=== PATIENT | male | born 1960 | race Caucasian/White ===

== ENCOUNTER 2017-05-07 09:22 | Inpatient (IN) | payer OTHER ==
[~2017-05-07] VITALS: Ht 170.2 cm; Wt 79.4 kg
[~2017-05-07 09:22] MED LIST: Aspirin PO; Atorvastatin PO; CLOP75TA3 PO; Citalopram Hydrobromide PO; Hydrocodone/Acetaminophen PO; LEVO500T16 PO; LISI-609 PO; METR500T PO; Metoprolol Tartrate PO; NITR0.4T SL
[2017-05-07 09:26] VITALS: BP 138/84; PULSE 53; RESP 10; O2SAT 97
[2017-05-07] MEDS ORDERED: 0.9% Sodium Chloride 1,000 ML IV ONE (09:40)
--- NOTE | 2017-05-07 09:40 | ED.REPORT ---
HPI-General Illness Date of Service May 07, 2017 ED Provider: Reno Alvarado MD Patient is a 56 year old male with a history of hypertension, [place], CAD and colitis who presents to the ED complaining of blood in stool onset a day ago. Associated symptoms that started 2 days ago include abdominal pain, diarrhea, diaphoresis and nausea. He denies current chest pain or shortness of breath. Patient reports having 3 bright red bloody bowel movements today. He states that he took Hydrocodone this morning with slight relief. Decided to come in today as he was worried about the volume of blood and has had this once before. Nursing Notes Stated Complaint: BLEEDING Chief Complaint: Male Abdominal Pain Nursing Notes Reviewed: Yes Allergies: Coded Allergies: No Known Allergies (Verified , 05/07/17) Scheduled Aspirin (Aspirin) 81 Mg Tablet 81 MG PO DAILY Atorvastatin (Lipitor) 40 Mg Tablet 40 MG PO HS Citalopram (Citalopram) 10 Mg Tablet 15 MG PO DAILY Clopidogrel Bisulfate (Plavix) 75 Mg Tablet 75 MG PO DAILY Lisinopril (Lisinopril) 10 Mg Tablet 10 MG PO HS Metoprolol Tartrate (Metoprolol Tartrate) 25 Mg Tablet 12.5 MG PO BID Scheduled PRN Hydrocodone-Acetaminophen 10-325 mg (Hydrocodone-Acetaminophen 10-325 mg) 1 Each Tablet 1 TABLET PO Q4-6H PRN PRN For Pain Nitroglycerin SL (Nitrostat) 0.4 Mg Tablet 0.4 MG SL Q5MIN PRN PRN For Chest Pain General Time Seen by : 09:39 Chief Complaint Blood in stool Hx Obtained From: Patient Arrived By: Walk-in Sudden in Onset?: Yes Onset Occurred: 1 day ago Symptom Duration: Since onset Location: : Abdomen Quality: Painful Radiation: : Does not radiate Severity: Current: Moderate Associated with: Reports: Abdominal pain Recent Healthcare: No recent hospitalization, Recent doctor visit Similar Sx Previous: No Past Medical History Past Medical History Notes: Had colonoscopy with biopsies 05/24/2014 and was found benign. Past Medical History [place] Reports: Coronary artery disease, Hyperlipidemia, Hypertension Reports: Depression Past Surgical History shoulder surgery (October 2014) Bilateral knee surgeries Hernia repair Splenectomy Abdominal surgery secondary to trauma Reports: Angioplasty Reports: Back/neck surgery Family History younger brother at a young age Smoking History Former Smoker Social History Alcohol Use: In recovery Drug Use: Denies drug use Other Social History: Smokeless tobacco Ambulatory Status Independent Review of Systems Full Review of Systems Constitutional: Denies: Chills, Fever Respiratory: Denies: Non-productive cough, Shortness of breath Cardiovascular: Denies: Chest pain GI: Reports: Abdominal pain, Diarrhea, Hematochezia, Nausea Skin: Reports Diaphoresis Complete sys rev & neg: except as marked. Physical Exam Constitutional: Well-developed, well-nourished. Not diaphoretic. Head: Normocephalic and atraumatic. Eyes: EOM are normal. Pupils are equal, round, and reactive to light. Neck: Supple, no tracheal deviation. Cardiovascular: Normal rate, regular rhythm. Equal and intact distal pulses throughout. Pulmonary/Chest: Effort normal and breath sounds normal. No respiratory distress. Abdominal: Soft. No distension. There is no rebound, or guarding. Bowel sounds present. Diffuse left sided tenderness with palpation. Musculoskeletal: Range of motion grossly intact, moving all extremities. No edema or tenderness appreciated. Neurological: AOx3. Grossly nonfocal exam. Strength and sensation intact and equal to bilateral upper and lower extremities. Skin: Warm and dry, no rashes or pallor appreciated. Psychiatric: Appropriate mood and affect. Behavior appears normal. Rectal: Hemoccult positive. Small amount of gross blood. Did not appreciate mass or external hemorrhoids Vital Signs Vital Signs Date Time Temp Pulse Resp B/P Pulse Ox O2 Delivery O2 Flow Rate FiO2 05/07/17 15:05 36.8 51 18 129/59 97 Room Air 05/07/17 12:12 36.6 52 16 141/72 97 Room Air 05/07/17 09:26 36.5 53 10 138/84 97 Room Air Initial VS: Reviewed Interpretation & Diagnostics Lab Results Interpretation Result Diagram: 05/07/17 1036 05/07/17 1036 Test 05/07/17 10:36 05/07/17 10:51 White Blood Count 12.1th/mm3 (3.8-10.1) Red Blood Count 4.35mil/mm3 (4.40-5.80) Hemoglobin 13.6g/dL (13.8-17.2) Hematocrit 40.0% (41.0-50.0) Mean Corpuscular Volume 92.0fL (81-100) Mean Corpuscular Hemoglobin 31.3pg (27.0-35.0) Mean Corpuscular Hemoglobin Concent 34.0% (32.0-37.0) Red Cell Distribution Width 13.1% (12.3-15.4) Platelet Count 322bil/L (150-400) Neutrophils (%) (Auto) 67.2% (40-74) Lymphocytes (%) (Auto) 23.7% (14-46) Monocytes (%) (Auto) 7.4% (4-12) Eosinophils (%) (Auto) 1.2% (0-5) Basophils (%) (Auto) 0.3% (0-3) Prothrombin Time 10.0sec (8.1-12.5) Prothromb Time International Ratio 0.94ratio Sodium Level 140mEq/L (134-144) Potassium Level 4.8mEq/L (3.5-5.2) Chloride Level 104mEq/L (97-108) Carbon Dioxide Level 24mmol/L (18-29) Blood Urea Nitrogen 14mg/dL (6-24) Creatinine 0.76mg/dL (0.76-1.27) Estimat Glomerular Filtration Rate 112mL/min (>59) Glucose Level 92mg/dL (60-99) Calcium Level 9.6mg/dL (8.5-10.1) Magnesium Level 1.9mg/dL (1.6-2.6) Total Bilirubin 0.4mg/dL (0.0-1.2) Aspartate Amino Transf (AST/SGOT) 23U/L (0-50) Alanine Aminotransferase (ALT/SGPT) 26U/L (0-44) Alkaline Phosphatase 114U/L (25-150) Troponin T < 0.010ug/L (0.0-0.011) Total Protein 7.2g/dL (6.4-8.4) Albumin 4.1g/dL (3.4-5.0) Urine Color Straw (YELLOW) Urine Appearance Clear (CLEAR,HAZY) Urine pH 6.0 (5.0-8.0) Urine Specific [place] 1.005 (1.003-1.035) Urine Protein Negativemg/dL (NEG,TRACE) Urine Glucose (UA) Negativemg/dL (NEGATIVE) Urine Ketones Negativemg/dL (NEGATIVE) Urine Occult Blood Trace (NEGATIVE) Urine Nitrite Negative (NEGATIVE) Urine Bilirubin Negative (NEGATIVE) Urine Urobilinogen Normalmg/dL (NORMAL) Urine Leukocyte Esterase Negative (NEGATIVE) Urine RBC 0-2/hpf (0-2) Urine WBC 0-5/hpf (0-5) Urine Epithelial Cells None/hpf (NONE-MOD) Urine Crystals None seen (NONE SEEN) Urine Bacteria None/hpf (NONE-FEW) Urine Hyaline Casts None/lpf (NONE) Urine Granular Casts None seen (NONE SEEN) Urine Waxy Casts None seen (NONE SEEN) Urine Red Blood Cell Casts None seen (NONE SEEN) Urine White Blood Cell Casts None seen (NONE SEEN) Urine Mucus None seen (None Seen) Urine Trichomonas None seen (NONE SEEN) Urine Yeast None (NONE SEEN) Urinalysis Comment None Urine Culture Reflexed Not indicated ECG Interpretation ECG Interpretation: paired ventricular premature complexes inferior infarct, old Time: 09:51 Interpreted by: ED physician Normal ECG Interpretation: Normal rate (52), Normal sinus rhythm X-Ray Chest Interpretation Chest Xray Interpretation: IMPRESSION: No acute cardiopulmonary pathology. Dictated by: Irvin Cedeno M.D. on 05/07/2017 at 10:07 Approved by: Irvin Cedeno M.D. on 05/07/2017 at 10:09 View: Portable, 1 view Interpretation / Wet Read by: Interpret - Radiologist CT Abd / Pelvis Interpretation IMPRESSION: 1. Segmental wall thickening of the descending colon with pericolonic fat stranding compatible with a mild colitis, likely infectious or inflammatory in etiology. 2. Mild wall thickening of the visualized distal esophagus may represent a mild esophagitis. Dictated by: Andrea Ayala M.D. on 05/07/2017 at 13:07 Approved by: Andrea Ayala M.D. on 05/07/2017 at 13:16 Interpretation / Wet Read by: Interpret - Radiologist Re-Eval/Medical Decision Med Decision/Clinical Course 56M w/ hx of CAD p/w several days of diarrhea and abdominal pain, now w/ BRBPR on multiple occasions today. HDS here. Does have some diffuse L sided TTP, though patient somewhat surprised w/ level of tenderness - though does have hx of CAD, doesn't seem entirely c/w mesenteric ischemia in terms of clinical presentation or exam. Hgb 13.6. No chest pain, pressure, or SOB. No external hemorrhoids appreciated. CT w/ colitis, unclear if infectious or inflammatory. No prodromal symptoms. Discussed w/ Dr. Alvarez - appreciate involvement; he will have the patient admitted and perform endoscopy. Admitted for further management and evaluation. All questions answered. Patient agreeable to plan, no further questions. Time of Eval: 13:59 Re-Evaluation/Progress Note: Discussed results and plan for admit. Patient understands and agrees to plan. All questions were addressed. Consultation #1: Referral / Consult Name: Prosper Alvarez MD Consulted With: On-call physician (GI) Call Returned at: 13:48 Geriatric Nurse Assistant: Will see patient, Agrees with eval, Agrees with plan Note: Consult with ARMANDO Christianson, who recommends the patient be admitted. Consultation #2: Referral / Consult Name: Raquel Gage MD Consulted With: Hospitalist Call Returned at: 15:36 Geriatric Nurse Assistant: Agrees with eval, Agrees with plan, Accepts admit Counseled Regarding: Diagnosis, Lab results, Need for admission Discharge & Departure Primary Impression: Acute GI bleeding Disposition: ADMITTED TO HOSPITAL Discharge Condition All VS Reviewed: Yes Condition: Stable Referrals: Irving Garza MD (PCP) Traceibgiovani Attestation Portions of this note were transcribed by Germaine Grider. I, Dr. Alvarado personally performed the history, physical exam and medical decision-making; I reviewed and confirmed the accuracy of the information in the transcribed note. Signed by: Jonah Spaulding, 05/07/17 and 1345 copies to: Irving Garza MD, William B MD May 07, 2017 09:39 Vaishali Grider May 07, 2017 09:52
[2017-05-07] MEDS ORDERED: Iohexol 300 mg/mL 30 mL Inj PO ONE (10:10)
[2017-05-07] MEDS ORDERED: HYDROmorphone 0.5 mg/0.5 mL iSecure Syringe IVPUSH PRN (10:10)
--- NOTE | 2017-05-07 10:17 | DRSVH ---
PROCEDURE: X-RAY CHEST ONE VIEW, PORTABLE ([id number]) INDICATIONS: GI bleed; eval for abnl TECHNIQUE: One view of the chest was acquired. COMPARISON: [facility], , CHEST 1VW (PORTABLE), 01/16/2015, 10:04. FINDINGS: Surgical changes and devices: Upper quadrant surgical clips. Lungs and pleura: No pleural effusions or pneumothorax. Lungs are clear. Mediastinum: Mediastinal contours appear normal. Heart size is normal. Bones and chest wall: No suspicious bony lesions. Overlying soft tissues appear unremarkable. IMPRESSION: No acute cardiopulmonary pathology. Dictated by: Irvin Cedeno M.D. on 05/07/2017 at 10:07 Approved by: Irvin Cedeno M.D. on 05/07/2017 at 10:09
[2017-05-07 10:50] LABS: BASOPHILS % (AUTO) 0.3 % (0-3); EOSINOPHILS % (AUTO) 1.2 % (0-5); MONOCYTES % (AUTO) 7.4 % (4-12); Mean Corpuscular Hemoglobin 31.3 pg (27.0-35.0); NEUTROPHILS % (AUTO) 67.2 % (40-74); Platelet Count 322 bil/L (150-400)
[2017-05-07 11:06] LABS: INR 0.94 ratio
[2017-05-07 11:07] LABS: APPEARANCE,URINE CLEAR (CLEAR,HAZY); COLOR,URINE STRAW (YELLOW); OCCULT BLOOD,URINE TRACE (NEGATIVE); UROBILINOGEN,URINE NORMAL (NORMAL)
[2017-05-07 11:38] LABS: Magnesium 1.9 mg/dL (1.6-2.6); TROPONIN T < 0.010 ug/L (0.0-0.011)
[2017-05-07 12:12] VITALS: BP 141/72; PULSE 52; RESP 16; O2SAT 97
[2017-05-07] MEDS ORDERED: Propofol 10,000 mCg/mL 20 mL Inj ONE (13:03)
--- NOTE | 2017-05-07 13:17 | DRSVH ---
PROCEDURE: CT ABDOMEN AND PELVIS WITH CONTRAST ([id number]) INDICATIONS: Abdominal pain and bright red blood per rectum. TECHNIQUE: After the administration of oral and intravenous contrast, 5 mm thick sections acquired from the diap hragms to the symphysis. 5 mm thick coronal and sagittal reformats were performed. For radiation do se reduction, the following was used: automated exposure control, adjustment of mA and/or kV accordi ng to patient size. COMPARISON: [facility], CT, CT ABD PELVIS W CON, 06/09/2015, 2:58. FINDINGS: Image quality: Excellent. ABDOMEN: Lung bases: There is mild dependent atelectasis. Heart size is normal. There is mild concentric wal l thickening of the visualized distal esophagus. Solid organs: There is a small hypodense focus in the posterior right hepatic lobe redemonstrated re presenting a cyst. The spleen is surgically absent, with multiple surgical clips in the left upper q uadrant. There are a few splenules noted. Gallbladder appears within normal limits without calcifie d gallstones. Biliary system is non-dilated. Pancreas enhances normally. No adrenal nodules. Kidn eys demonstrate no hydronephrosis. There is cortical thinning posteriorly in the left kidney consist ent with sequela of prior trauma, infection, or infarct. A small calcification in the left kidney me asuring up to 3 mm is compatible with a small nonobstructing renal stone. Peritoneum and bowel: Stomach and small bowel loops are normal in caliber and wall thickness. There are 2 short segment of mild colonic wall thickening in the descending colon with mild pericolonic fa t stranding consistent with a mild colitis. There are colonic diverticula demonstrated. No free flu id or air. Nodes and vessels: No retroperitoneal or mesenteric adenopathy. Aorta and inferior vena cava are no rmal in caliber. Miscellaneous: No ventral hernias. PELVIS: Genitourinary: Bladder wall thickness is normal. Miscellaneous: No inguinal hernias or adenopathy. Bones: No suspicious bony lesions. No vertebral body compression fractures. IMPRESSION: 1. Segmental wall thickening of the descending colon with pericolonic fat stranding compatible with a mild colitis, likely infectious or inflammatory in etiology. 2. Mild wall thickening of the visualized distal esophagus may represent a mild esophagitis. Dictated by: Andrea Ayala M.D. on 05/07/2017 at 13:07 Approved by: Andrea Ayala M.D. on 05/07/2017 at 13:16
[2017-05-07] MEDS ORDERED: METO25TA6 PO (14:33)
[2017-05-07] MEDS ORDERED: HYDR-3740 PO (14:33)
[2017-05-07] MEDS ORDERED: ASPI-973 PO (14:33)
[2017-05-07] MEDS ORDERED: CITA10TA9 PO (14:33)
[2017-05-07] MEDS ORDERED: LISI10TA PO (14:33)
[2017-05-07] MEDS ORDERED: LIP40 PO (14:33)
--- NOTE | 2017-05-07 14:56 | PCM.CHPMED ---
Subjective Date of Service: May 07, 2017 Provider requesting consult: Reno Alvarado MD Primary Physician: Admitting Physician: Primary Care Physician: Irving Garza MD Attending Physician: Admit Status: From the Emergency Department Chief Complaint: Chief Complaint: bloody stools History of Present Illness: GASTROENTEROLOGY CONSULTATION Patient is a 56 year old male with a history of hypertension, [place], CAD and colitis who presented to the ED complaining of blood in stool that first started yesterday. 2 days ago he began experiencing some abdominal pain, diarrhea, diaphoresis and nausea. Patient reports 3 episodes of passing bright red blood today, and several episodes yesterday. This was preceded by cramping, intense abdominal pain, large volumes of diarrhea, and diaphoresis at about 2 am Thu. He has not eaten anything out of the ordinary, he is not feeling fever or chills. He has had some mild nausea. in June of 2015 patient underwent colonoscopy with biopsies, visual picture and pathology consistent with ischemic colitis. He has had laparotomy in 1983 for gastric perforation due to trauma and a splenectomy in 2004 Review of Systems: Constitutional: Reports: Sweats, Denies: Chills, Fever Eyes: Denies: Blurred Vision Cardiovascular: Denies: Chest Pain Respiratory: Denies: Shortness of Breath Gastrointestinal: Reports: Abdominal Pain, Blood in stool (red) Genitourinary: Denies: Dysuria Musculoskeletal: Reports: Shoulder Pain Neurological: Denies: Dizziness Psychologic: Reports: Depression, Denies: Agitation PMH Past Medical History DC Dec 09, 2014 Coronary artery disease Hyperlipidemia Hypertension Depression Surgical History shoulder surgery (October 2014) Bilateral knee surgeries Hernia repair Splenectomy Abdominal surgery secondary to trauma Angioplasty x1 2015 Back/neck surgery Allergies: Coded Allergies: No Known Allergies (Verified , 05/07/17) Family History Family History No history of Colon Cancer, inflammatory bowel disease, or celiac disease in first of second degree relatives. Social History Hx Alcohol Use: NoHx Substance Use: NoHx Tobacco Use: Yes Smoking Status: Former Smoker (36 years up to about 2 packs per day) Exam Vital Signs Vital Sign - Last Date Time Temp Pulse Resp B/P Pulse Ox O2 Delivery O2 Flow Rate FiO2 05/07/17 12:12 36.6 52 16 141/72 97 Room Air General: Alert, Oriented X3, Cooperative, No Acute Distress Head: Normal Eyes: EOMI Chest & Lungs: Auscultation (clear bilaterally) Cardiovascular: Exam Unremarkable, No Murmurs/Rubs/Gallops Abdomen: Non-tender, Obese, Other (well healed midline scar) Musculoskeletal: Unremarkable Extremities: No cyanosis/clubbing/edma bilat Neurological: Grossly Neurologically Intact Lab and Diagnostics Result Diagram: 05/07/17 1036 05/07/17 1036 X-Rays, CTs and MRIs PROCEDURE: CT ABDOMEN AND PELVIS WITH CONTRAST ([id number]) IMPRESSION: 1. Segmental wall thickening of the descending colon with pericolonic fat stranding compatible with a mild colitis, likely infectious or inflammatory in etiology. 2. Mild wall thickening of the visualized distal esophagus may represent a mild esophagitis. Dictated by: Andrea Ayala M.D. on 05/07/2017 at 13:07 Assessment & Plan Assessment Patient is a 56 year old male with a history of hypertension, [place], CAD and colitis who presented to the ED complaining of blood in stool that first started yesterday. He has a history of ischemic colitis in 2014. He has had splenectomy in 2004 and laparotomy with partial gastrectomy in 1983 leaving the patient at higher risk for ischemic colitis, this could also be infectious colitis, a neoplastic process, or inflammatory bowel disease. Recommendations: Clear liquid diet until bowel prep starts Bowel Prep starting at 4pm today Colonoscopy scheduled at 4:00pm tomorrow. Problems: copies to: Prosper Alvarez MD, Erika R DO May 07, 2017 14:56
[2017-05-07 15:05] VITALS: BP 129/59; PULSE 51; RESP 18; O2SAT 97
[2017-05-07] MEDS ORDERED: HYDROmorphone 1 mg/mL Inj IVPUSH ONE (15:20)
[2017-05-07] MEDS ORDERED: PEG/Electrolytes 4,000 mL Solution PO ONE (16:00)
[2017-05-07] MEDS ORDERED: Ondansetron 2 mg/mL 2 mL Inj IVPUSH PRN (16:05)
--- NOTE | 2017-05-07 16:12 | PCM.HPMED ---
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 Patient found that stools are particularly smelly but there was no blood. The next day, diarrhea stopped but patient started having incomplete sensation of the medication, noticed bright red blood without any stool contents, this was continued throughout the day and patient was noticed that he was severely diaphoretic which was very similar to what he experienced from heart attack 2 years ago, patient did not have any chest pain or difficulty breathing, lightheadedness. Today, patient still noticed bloody stools with intermittent clots, decided to come to the hospital In the emergency room vitals BP 130-140s,saúl to 50s, afebrile, RR16-18, 97% on RA, CT abd showed 2short segmental wall thickening of the descending colon with pericolonic fat stranding compatible with a mild colitis, likely infectious or inflammatory in etiology. GI was consulted. planned for colonoscopy tomorrow AM. ROS: pt denied F,C, travel, unusual foot intake, chest pain, complaints, cough, sputum Review of Systems: Pertinent positives as noted in history of present illness. All other systems were reviewed and are negative Allergies Coded Allergies: No Known Allergies (Verified , 05/07/17) Home Medications Aspirin 81 mg daily Lovastatin 40 mg daily at bedtime Citalopram 50 mg daily Plavix 75 mg daily Percocet 1 tablet every 4-6 as needed for pain Lisinopril 10 mg daily at bedtime Metoprolol 12.5 mg bid Nitroglycerin 0.4 mg sublingual every 5 minute for chest pain PMH As described above in history of present illness Surgical History "I had a trauma my stomach and 60% of my stomach was removed" Rt shoulder surgery Family History Brother had heart attack Social History Hx Alcohol Use: No Hx Substance Use: No Hx Tobacco Use: Yes Smoking Status: Former Smoker (36 years up to about 2 packs per day) Exam Vital Signs Vital Sign - Last Date Time Temp Pulse Resp B/P Pulse Ox O2 Delivery O2 Flow Rate FiO2 05/07/17 15:05 36.8 51 18 129/59 97 Room Air Exam NAD, comfortably laying down on the bed no JVD, MMM, no LAD RRR, nl s1, s2 no mrg CTAB, no w,c S,ND, mild tenderness on the left lower quadrant,normoactive BS+ warm, no edema, pulses 2/2 Lab and Diagnostics Result Diagram: 05/07/17 1036 05/07/17 1036 X-Rays, CTs and MRIs PROCEDURE: CT ABDOMEN AND PELVIS WITH CONTRAST ([id number]) INDICATIONS: Abdominal pain and bright red blood per rectum. TECHNIQUE: After the administration of oral and intravenous contrast, 5 mm thick sections acquired from the diaphragms to the symphysis. 5 mm thick coronal and sagittal reformats were performed. For radiation dose reduction, the following was used : automated exposure control, adjustment of mA and/or kV according to patient size. COMPARISON: [facility], CT, CT ABD PELVIS W CON, 06/09/2015, 2:58. FINDINGS: Image quality: Excellent. ABDOMEN: Lung bases: There is mild dependent atelectasis. Heart size is normal. There is mild concentric wall thickening of the visualized distal esophagus. Solid organs: There is a small hypodense focus in the posterior right hepatic lobe redemonstrated representing a cyst. The spleen is surgically absent, with multiple surgical clips in the left upper quadrant. There are a few splenules noted. Gallbladder appears within normal limits without calcified gallstones. Biliary system is non-dilated. Pancreas enhances normally. No adrenal nodules. Kidneys demonstrate no hydronephrosis. There is cortical thinning posteriorly in the left kidney consistent with sequela of prior trauma, infection, or infarct. A small calcification in the left kidney measuring up to 3 mm is compatible with a small nonobstructing renal stone. Peritoneum and bowel: Stomach and small bowel loops are normal in caliber and wall thickness. There are 2 short segment of mild colonic wall thickening in the descending colon with mild pericolonic fat stranding consistent with a mild colitis. There are colonic diverticula demonstrated. No free fluid or air. Nodes and vessels: No retroperitoneal or mesenteric adenopathy. Aorta and inferior vena cava are normal in caliber. Miscellaneous: No ventral hernias. PELVIS: Genitourinary: Bladder wall thickness is normal. Miscellaneous: No inguinal hernias or adenopathy. Bones: No suspicious bony lesions. No vertebral body compression fractures. IMPRESSION: 1. Segmental wall thickening of the descending colon with pericolonic fat stranding compatible with a mild colitis, likely infectious or inflammatory in etiology. 2. Mild wall thickening of the visualized distal esophagus may represent a mild esophagitis. Dictated by: Andrea Ayala M.D. on 05/07/2017 at 13:07 Approved by: Andrea Ayala M.D. on 05/07/2017 at 13:16 Assessment & Plan Acute, active sudden onset diarrhea, BRBPR, POA, ischemic colitis given atherosclerotic burden , hx of ischemic colitis or LGIB in the setting of DAPT, probable infectious colitis. -stool PCR if possible -appreciate input, bowel prep and NPO after MN, tentative plan for colonoscopy tomorrow Chronic, stable HTN, HLD, continue BB, home statin STEMI in 2014 s/p JENELLE in RCA on DAPT, hold both, may resume aspirin only, follow up with dispo:Patient will be admitted with inpatient status with expectation of inpatient therapy for more than 2 midnights diet:clear liquid, NPO after MN dvt ppx:SCD Full code Time spent 65min Raquel Gage MD May 07, 2017 16:12
[2017-05-07 16:16] VITALS: BP 130/66; PULSE 51; RESP 16; O2SAT 96
[2017-05-07 16:57] VITALS: BP 160/77; PULSE 51; RESP 20; O2SAT 97
--- NOTE | 2017-05-07 17:00 | NUR ---
admitted to room 1012 from ER 56 year old male with GIB, pt states has not had active bleeding since before he got to ER. Having some abd pain, no nausea, ambulatory, VSS
[2017-05-07] MEDS: HYDROmorphone 1 mg/mL Inj IVPUSH PRN ×2 (17:22→21:35)
[2017-05-07] MEDS: HYDROcodone-APAP 10-325 mg PO PRN (19:39)
[2017-05-07 20:34] VITALS: BP 165/87; PULSE 49; RESP 20; O2SAT 98
[2017-05-07] MEDS: Pantoprazole 4 mg/mL 10 mL Inj IVPUSH SCH (21:05)
[2017-05-08] VITALS (9 sets, daily range): BP systolic 115–152; BP diastolic 63–85; PULSE 45–59; RESP 16–20; O2SAT 94–98
[2017-05-08] MEDS: HYDROmorphone 1 mg/mL Inj IVPUSH PRN ×4 (02:12→14:09)
--- NOTE | 2017-05-08 05:47 | NUR ---
Prep Pt started prep 2205 and finished prep around 0030. Pt did not have a bowel movement until 2340. Pt bowel started of dark brown with no red streaks visible. Pt last BM was 0215 and was mostly clear with some yellow color. Pt NPO at 0215 after prep was finished. Pt states bloating is gone as well as the tenderness. Pt states "I feel so good I want to go home and eat some breakfast."
[2017-05-08] MEDS: Pantoprazole 4 mg/mL 10 mL Inj IVPUSH SCH ×2 (08:23→20:30)
[2017-05-08 08:38] LABS: BASOPHILS % (AUTO) 0.4 % (0-3); EOSINOPHILS % (AUTO) 2.4 % (0-5); MONOCYTES % (AUTO) 7.7 % (4-12); Mean Corpuscular Hemoglobin 31.3 pg (27.0-35.0); NEUTROPHILS % (AUTO) 60.7 % (40-74); Platelet Count 302 bil/L (150-400)
--- NOTE | 2017-05-08 11:34 | NUR ---
Social Work: Screening/Readiness for Discharge D: EMR reviewed. Pt is a 56 y/o male admitted for acute GI bleed per H&P. Per MD in AM multi-disciplinary rounds, pt is likely to discharge tomorrow with no discharge needs anticipated. Pt's insurance is [facility]. PCP is Irving Garza. Pt lives at home with his spouse in [place]. NOK is listed as , Gisele Clark ([phone]). Pt provided with DPOA/advanced directive ppw and encouraged to provide a completed copy to the hospital. Pt to discharge home with spouse via POV when medically stable. SW does not anticipate any discharge needs at this time but will continue to follow if needs arise. A: Pt who is independent at baseline P: Pt to discharge home with spouse via POV when medically stable. SW does not anticipate any discharge needs at this time but will continue to follow if needs arise. ROLAND Acuña
--- NOTE | 2017-05-08 12:24 | PCM.PNMED ---
Subjective Date of Service May 08, 2017 Subjective no hematochezia since admission, had bowel prep c/o mild abd pain, unchanged, no n,v Exam Vital Signs Vital Sign - Last Date Time Temp Pulse Resp B/P Pulse Ox O2 Delivery O2 Flow Rate FiO2 05/08/17 08:00 49 05/08/17 04:40 36.5 18 120/63 94 Room Air Intake and Output 05/07/17 05/07/17 05/08/17 Cumulative From/Thru 15:00 23:00 07:00 05/07/17 09:26 - 05/08/17 06:08 Intake Total 1000 ml 560 ml 4640 ml 6200 ml Output Total 250 ml 700 ml 950 ml Balance 1000 ml 310 ml 3940 ml 5250 ml Intake Oral 560 ml 4640 ml 5200 ml IV Total 1000 ml 1000 ml Output Urine Total 250 ml 700 ml 950 ml # Bowel Movements 10 10 Exam NAD, comfortably laying down on the bed no JVD, MMM, no LAD RRR, nl s1, s2 no mrg CTAB, no w,c S,ND, mild tenderness on the left lower quadrant on deep palpation,normoactive BS+ warm, no edema, pulses 2/2 IVs and Medications Medications Reviewed: Medications were reviewed in detail Lab and Diagnostics Result Diagram: 05/08/17 0824 05/07/17 1036 X-Rays, CTs and MRIs PROCEDURE: CT ABDOMEN AND PELVIS WITH CONTRAST ([id number]) INDICATIONS: Abdominal pain and bright red blood per rectum. TECHNIQUE: After the administration of oral and intravenous contrast, 5 mm thick sections acquired from the diaphragms to the symphysis. 5 mm thick coronal and sagittal reformats were performed. For radiation dose reduction, the following was used : automated exposure control, adjustment of mA and/or kV according to patient size. COMPARISON: [facility], CT, CT ABD PELVIS W CON, 06/09/2015, 2:58. FINDINGS: Image quality: Excellent. ABDOMEN: Lung bases: There is mild dependent atelectasis. Heart size is normal. There is mild concentric wall thickening of the visualized distal esophagus. Solid organs: There is a small hypodense focus in the posterior right hepatic lobe redemonstrated representing a cyst. The spleen is surgically absent, with multiple surgical clips in the left upper quadrant. There are a few splenules noted. Gallbladder appears within normal limits without calcified gallstones. Biliary system is non-dilated. Pancreas enhances normally. No adrenal nodules. Kidneys demonstrate no hydronephrosis. There is cortical thinning posteriorly in the left kidney consistent with sequela of prior trauma, infection, or infarct. A small calcification in the left kidney measuring up to 3 mm is compatible with a small nonobstructing renal stone. Peritoneum and bowel: Stomach and small bowel loops are normal in caliber and wall thickness. There are 2 short segment of mild colonic wall thickening in the descending colon with mild pericolonic fat stranding consistent with a mild colitis. There are colonic diverticula demonstrated. No free fluid or air. Nodes and vessels: No retroperitoneal or mesenteric adenopathy. Aorta and inferior vena cava are normal in caliber. Miscellaneous: No ventral hernias. PELVIS: Genitourinary: Bladder wall thickness is normal. Miscellaneous: No inguinal hernias or adenopathy. Bones: No suspicious bony lesions. No vertebral body compression fractures. IMPRESSION: 1. Segmental wall thickening of the descending colon with pericolonic fat stranding compatible with a mild colitis, likely infectious or inflammatory in etiology. 2. Mild wall thickening of the visualized distal esophagus may represent a mild esophagitis. Dictated by: Andrea Ayala M.D. on 05/07/2017 at 13:07 Approved by: Andrea Ayala M.D. on 05/07/2017 at 13:16 Assessment & Plan Acute, active sudden onset diarrhea, BRBPR, POA, possible ischemic colitis given atherosclerotic burden, hx of ischemic colitis or LGIB in the setting of DAPT, probable infectious colitis. -h/h stable, no active bleeding -stool PCR if possible -appreciate input,plan for colonoscopy today -started PPI on adm Chronic, stable HTN, HLD, continue BB, home statin STEMI in 2014 s/p JENELLE in RCA on DAPT, hold both, may resume aspirin only after colonoscopy, follow up with dispo:likely 1-2days diet:NPO, likely resume clear liquid, dvt ppx:SCD Full code Time spent 35min Raquel Gage MD May 08, 2017 12:24
--- NOTE | 2017-05-08 16:37 | NUR ---
Off unit Pt off unit to Endo at 1600. Pt VSS, PHAN, A&O x 3. Prep was done last night and pt was NPO other than clear liquids till 1400. Report given to NURIA Angelo. air analysis engineering technician notified pt going to endo.
[2017-05-08] MEDS ORDERED: Ondansetron 2 mg/mL 2 mL Inj IVPUSH PRN (16:50)
[2017-05-08] MEDS ORDERED: MetoCLOpramide 5 mg/mL 2 mL Inj IVPUSH PRN (16:50)
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
[2017-05-08] MEDS: Lactated Ringer's 1,000 ML IV SCH ×2 (16:58→17:55)
[2017-05-08] MEDS: HYDROcodone-APAP 10-325 mg PO PRN (18:46)
--- NOTE | 2017-05-08 19:24 | NUR ---
Post op Pt back from colonoscopy A&O x 3, asking to eat and wanting to be discharged. Advised that per Endo pt was to stay overnight to monitor for bleeding and would discharge tomorrow. Pt's IV went bad at endo and he declined to have a new one placed. Paged MD and didn't hear back. weight shifter aware. Using PO pain meds now. Bed in low, call light in reach, care continues.
--- NOTE | 2017-05-08 20:54 | ENDO ---
[address] [address] ENDOSCOPY PROCEDURE PATIENT: MITZI REYNOLDS : 1960 MR#: [id number] ADMIT: 05/07/2017 JOB ID: [id number] OPERATION: Colonoscopy with biopsy. PREOPERATIVE DIAGNOSIS(ES): Rectal bleeding. POSTOPERATIVE DIAGNOSIS(ES): 1. Mild sigmoid diverticulosis. 2. There was a 4 mm ascending colon polyp, removed by hot snare polypectomy, followed by a clip placed at the post polypectomy site given the patient is on Plavix. 3. Mild erythema with ulcerations seen from 30 to 35 cm from the anus suspicious for ischemic colitis. Status post biopsy. ANESTHESIA: Monitored anesthesia care. COMPLICATIONS: None. BLOOD LOSS: Minimal. DESCRIPTION OF PROCEDURE: After the risks and benefits were explained to the patient, informed consent was obtained. After anesthesia was administered, the colonoscope was inserted from rectum to the cecum and the mucosa carefully examined. Prep of the patient was excellent. After the procedure was done, the scope was withdrawn and the procedure terminated. FINDINGS: Upon inspection of the anus no masses, hemorrhoids, ulcers, or fissures that were seen. Throughout the entire examination there was mild sigmoid diverticulosis. There was also mild erythema with ulcerations seen from 30 to 35 cm from the anus suspicious for ischemic colitis. Status post biopsy. A 4 mm ascending colon polyp was also seen and removed by hot snare polypectomy, followed by a hemoclip placed at the post polypectomy site due to oozing and the patient on Plavix. Retroflexion was normal. IMPRESSIONS: 1. Mild erythema and ulcerations seen from 30 to 35 cm from the anus. Status post biopsy and suspicious for ischemic colitis. 2. Mild sigmoid diverticulosis. 3. A 4 mm ascending colon polyp, removed by hot snare polypectomy. Followed by a hemoclip placement at the post polypectomy site. RECOMMENDATIONS: Await pathology results. Encouraged hydration. If no overt signs of bleeding overnight and hemoglobin stable, then okay to restart Plavix in the morning and discharge home with followup in GI Clinic in 2-4 weeks as an outpatient.
[2017-05-09 04:25] VITALS: BP 116/65; PULSE 51; RESP 18; O2SAT 96
[2017-05-09 06:05] VITALS: PULSE 58
--- NOTE | 2017-05-09 06:43 | NUR ---
IV Access Pt returned from [facility] with IV access according to hand-off report from the day shift RN. Pt refused to let day shift RN place a new IV access. Pt did have IVP protonix at HS but still no IV access site. Pt refused to let me place a new IV access site and therefore refused the HS scheduled protonix IVP medication.
[2017-05-09 06:53] LABS: BASOPHILS % (AUTO) 0.4 % (0-3); EOSINOPHILS % (AUTO) 1.8 % (0-5); Mean Corpuscular Hemoglobin 30.7 pg (27.0-35.0); Mean Corpuscular Volume 92.1 fL (81-100); NEUTROPHILS % (AUTO) 55.2 % (40-74); Platelet Count 328 bil/L (150-400)
[2017-05-09 07:07] LABS: Magnesium 2.2 mg/dL (1.6-2.6); Phosphorus 3.2 mg/dL (2.5-4.9)
--- NOTE | 2017-05-09 07:45 | NUR ---
Ready to leave Pt ready to leave. States he has a wedding to go to in [facility]. MD aware. Care continues.
--- NOTE | 2017-05-09 08:05 | PCM.PNSURG ---
Subjective Date of Service: May 09, 2017 Date of Service: May 09, 2017 Visit Information: Subjective: hb stable 13.3. no overt signs gi bleed. s/p colon yesterday. pt wants to go home now. has wedding at 1pm Postop General: No Complaints Objective Vital Sign- Last 8 Hours Date Time Temp Pulse Resp B/P Pulse Ox O2 Delivery O2 Flow Rate FiO2 05/09/17 06:05 58 05/09/17 04:25 36.6 51 18 116/65 96 Room Air Intake and Output- Last 8 Hour 05/09/17 Cumulative From/Thru 07:00 05/07/17 09:26 - 05/09/17 06:44 Intake Total 620 ml 7620 ml Output Total 2100 ml 3600 ml Balance -1480 ml 4020 ml Intake Oral 620 ml 6420 ml IV Total 1200 ml Output Urine Total 2100 ml 3600 ml # Bowel Movements 0 12 General: Oriented X3 Neck: Supple Lungs: Clear to Auscultation Heart: Exam Unremarkable Abdomen: Benign, Soft, Non-tender, Non-distended, Normoactive bowel tones Extremities: Distal Pulses Palpable Result Diagram: 05/09/17 0532 05/09/17 0532 Assessment & Plan Impression 56 year old male with a history of hypertension, RI, CAD and colitis who presented to the ED complaining of rectal bleeding. He has a history of ischemic colitis in 2014. He has had splenectomy in 2004 and laparotomy with partial gastrectomy in 1983 leaving the patient at higher risk for ischemic colitis, s/p colon 05/08/2017- IMPRESSIONS: 1. Mild erythema and ulcerations seen from 30 to 35 cm from the anus. Status post biopsy and suspicious for ischemic colitis. 2. Mild sigmoid diverticulosis. 3. A 4 mm ascending colon polyp, removed by hot snare polypectomy. Followed by a hemoclip placement at the post polypectomy site. RECOMMENDATIONS: Await pathology results. Encouraged hydration. If no overt signs of bleeding overnight and hemoglobin stable, then okay to restart Plavix in the morning and discharge home with followup in GI Clinic in 2-4 weeks as an outpatient. Recs: 1) ok to d/c home today from gi standpoint 2) ok restart plavix 3) ok to start PO diet per hospitalist team will sign off Problems: Prosper Alvarez MD May 09, 2017 08:05
[2017-05-09 08:27] VITALS: PULSE 54
[2017-05-09] MEDS: Pantoprazole 4 mg/mL 10 mL Inj IVPUSH SCH (08:30)
[2017-05-09 08:45] VITALS: BP 121/69; PULSE 52; RESP 16; O2SAT 97
[2017-05-09] MEDS: HYDROcodone-APAP 10-325 mg PO PRN (08:58)
--- NOTE | 2017-05-09 09:54 | PCM.DIMED ---
Discharge Instructions Date of Service May 09, 2017 Dates of Hospitalization May 07, 2017 at 16:44 Discharge Diagnosis Discharge Diagnosis Ischemic Colitis CAD Hyperlipidemia Depression DM 2 Chronic Pain Diet Discharge Diet: Heart Healthy Call your provider Call your provider for: Fever or Chills, Shortness of breath, Bleeding, Chest pain, Vomitting, Excessive diarrhea Patient Instructions Follow-up Provider: Irving Garza MD Follow-up with PCP in: 1 week Provider: Prosper Alvarez MD Follow-up in: 2 weeks Sundar Mendoza MD May 09, 2017 09:54
--- NOTE | 2017-05-09 10:43 | NUR ---
Social Work: Discharge D: EMR reviewed. Pt is on day 2 of hospitalization. Per MD in AM multi-disciplinary rounds, pt is medically stable and will discharge today with no discharge needs identified. Per RN, pt is eager to discharge to attend wedding in [place] at 1300 today. Pt to discharge today with spouse via POV. SW does not anticipate any discharge needs at this time but will continue to follow if needs arise. A: Pt who is independent at baseline P: Per RN, pt is eager to discharge to attend wedding in [place] at 1300 today. Pt to discharge today with spouse via POV. AARON does not anticipate any discharge needs at this time but will continue to follow if needs arise. ROLAND Acuña
--- NOTE | 2017-05-09 11:43 | NUR ---
Discharge Pt discharged at approximately 1050 to home. Pt given educational material for GI Bleed, followup appointments to be made by pt as noted. Pt acknowledged all information. Tele DC'd mechanical facilities technician notified. Pt left with all personal belongings. Pt refused escort to door.
--- NOTE | 2017-05-09 13:58 | PCM.DC.MED ---
Discharge Summary Date of Service May 09, 2017 Dates of Hospitalization Date of Hospital Admission May 07, 2017 at 16:44 Date of Discharge: May 09, 2017 Providers: Admitting Physician: Raquel Gage MD Primary Care Physician: Irving Garza MD Attending Physician: Long Mendoza MD Diagnosis at Time of Discharge Diagnosis at Time of Discharge Ischemic Colitis CAD Hyperlipidemia Depression DM 2 Chronic Pain Consultations [address] [address] Medical Consultation PATIENT NAME: MITZI REYNOLDS SR : 1960 MR#: [id number] Subjective Date of Service: May 07, 2017 Provider requesting consult: Reno Alvarado MD Primary Physician: Admitting Physician: Primary Care Physician: Irving Garza MD Attending Physician: Admit Status: From the Emergency Department Chief Complaint: Chief Complaint: bloody stools History of Present Illness: GASTROENTEROLOGY CONSULTATION Patient is a 56 year old male with a history of hypertension, CO, CAD and colitis who presented to the ED complaining of blood in stool that first started yesterday. 2 days ago he began experiencing some abdominal pain, diarrhea, diaphoresis and nausea. Patient reports 3 episodes of passing bright red blood today, and several episodes yesterday. This was preceded by cramping, intense abdominal pain, large volumes of diarrhea, and diaphoresis at about 2 am Thu. He has not eaten anything out of the ordinary, he is not feeling fever or chills. He has had some mild nausea. in June of 2015 patient underwent colonoscopy with biopsies, visual picture and pathology consistent with ischemic colitis. He has had laparotomy in 1983 for gastric perforation due to trauma and a splenectomy in 2004 Review of Systems: Constitutional: Reports: Sweats, Denies: Chills, Fever Eyes: Denies: Blurred Vision Cardiovascular: Denies: Chest Pain Respiratory: Denies: Shortness of Breath Gastrointestinal: Reports: Abdominal Pain, Blood in stool (red) Genitourinary: Denies: Dysuria Musculoskeletal: Reports: Shoulder Pain Neurological: Denies: Dizziness Psychologic: Reports: Depression, Denies: Agitation PMH Past Medical History CO Dec 09, 2014 Coronary artery disease Hyperlipidemia Hypertension Depression Surgical History shoulder surgery (October 2014) Bilateral knee surgeries Hernia repair Splenectomy Abdominal surgery secondary to trauma Angioplasty x1 2015 Back/neck surgery Allergies: Coded Allergies: No Known Allergies (Verified , 05/07/17) Family History Family History No history of Colon Cancer, inflammatory bowel disease, or celiac disease in first of second degree relatives. Social History Hx Alcohol Use: NoHx Substance Use: NoHx Tobacco Use: Yes Smoking Status: Former Smoker (36 years up to about 2 packs per day) Exam Vital Signs Vital Sign - Last Date Time Temp Pulse Resp B/P Pulse Ox O2 Delivery O2 Flow Rate FiO2 05/07/17 12:12 36.6 52 16 141/72 97 Room Air General: Alert, Oriented X3, Cooperative, No Acute Distress Head: Normal Eyes: EOMI Chest & Lungs: Auscultation (clear bilaterally) Cardiovascular: Exam Unremarkable, No Murmurs/Rubs/Gallops Abdomen: Non-tender, Obese, Other (well healed midline scar) Musculoskeletal: Unremarkable Extremities: No cyanosis/clubbing/edma bilat Neurological: Grossly Neurologically Intact Lab and Diagnostics Result Diagram: 05/07/17 1036 05/07/17 1036 X-Rays, CTs and MRIs PROCEDURE: CT ABDOMEN AND PELVIS WITH CONTRAST (PNL-7102) IMPRESSION: 1. Segmental wall thickening of the descending colon with pericolonic fat stranding compatible with a mild colitis, likely infectious or inflammatory in etiology. 2. Mild wall thickening of the visualized distal esophagus may represent a mild esophagitis. Dictated by: Andrea Ayala M.D. on 05/07/2017 at 13:07 Assessment & Plan Assessment Patient is a 56 year old male with a history of hypertension, CO, CAD and colitis who presented to the ED complaining of blood in stool that first started yesterday. He has a history of ischemic colitis in 2014. He has had splenectomy in 2004 and laparotomy with partial gastrectomy in 1983 leaving the patient at higher risk for ischemic colitis, this could also be infectious colitis, a neoplastic process, or inflammatory bowel disease. Recommendations: Clear liquid diet until bowel prep starts Bowel Prep starting at 4pm today Colonoscopy scheduled at 4:00pm tomorrow. Problems: copies to: Mitzi Alvarez MD, Erika R DO May 07, 2017 14:56 <Electronically signed by Mitzi Alvarez MD> 05/07/178 <Electronically signed by Mitzi Alvarez MD> 05/07/171907 Procedures XRay, CTs & MRIs PROCEDURE: CT ABDOMEN AND PELVIS WITH CONTRAST (PNL-7102) INDICATIONS: Abdominal pain and bright red blood per rectum. TECHNIQUE: After the administration of oral and intravenous contrast, 5 mm thick sections acquired from the diaphragms to the symphysis. 5 mm thick coronal and sagittal reformats were performed. For radiation dose reduction, the following was used : automated exposure control, adjustment of mA and/or kV according to patient size. COMPARISON: [facility], CT, CT ABD PELVIS W CON, 06/09/2015, 2:58. FINDINGS: Image quality: Excellent. ABDOMEN: Lung bases: There is mild dependent atelectasis. Heart size is normal. There is mild concentric wall thickening of the visualized distal esophagus. Solid organs: There is a small hypodense focus in the posterior right hepatic lobe redemonstrated representing a cyst. The spleen is surgically absent, with multiple surgical clips in the left upper quadrant. There are a few splenules noted. Gallbladder appears within normal limits without calcified gallstones. Biliary system is non-dilated. Pancreas enhances normally. No adrenal nodules. Kidneys demonstrate no hydronephrosis. There is cortical thinning posteriorly in the left kidney consistent with sequela of prior trauma, infection, or infarct. A small calcification in the left kidney measuring up to 3 mm is compatible with a small nonobstructing renal stone. Peritoneum and bowel: Stomach and small bowel loops are normal in caliber and wall thickness. There are 2 short segment of mild colonic wall thickening in the descending colon with mild pericolonic fat stranding consistent with a mild colitis. There are colonic diverticula demonstrated. No free fluid or air. Nodes and vessels: No retroperitoneal or mesenteric adenopathy. Aorta and inferior vena cava are normal in caliber. Miscellaneous: No ventral hernias. PELVIS: Genitourinary: Bladder wall thickness is normal. Miscellaneous: No inguinal hernias or adenopathy. Bones: No suspicious bony lesions. No vertebral body compression fractures. IMPRESSION: 1. Segmental wall thickening of the descending colon with pericolonic fat stranding compatible with a mild colitis, likely infectious or inflammatory in etiology. 2. Mild wall thickening of the visualized distal esophagus may represent a mild esophagitis. Dictated by: Andrea Ayala M.D. on 05/07/2017 at 13:07 Approved by: Andrea Ayala M.D. on 05/07/2017 at 13:16 Invasive Procedures FOR[facility] [address] [place] [address] ENDOSCOPY PROCEDURE PATIENT: MITZI REYNOLDS : 1960 MR#: [id number] ADMIT: 05/07/2017 JOB ID: [id number] OPERATION: Colonoscopy with biopsy. PREOPERATIVE DIAGNOSIS(ES): Rectal bleeding. POSTOPERATIVE DIAGNOSIS(ES): 1. Mild sigmoid diverticulosis. 2. There was a 4 mm ascending colon polyp, removed by hot snare polypectomy, followed by a clip placed at the post polypectomy site given the patient is on Plavix. 3. Mild erythema with ulcerations seen from 30 to 35 cm from the anus suspicious for ischemic colitis. Status post biopsy. ANESTHESIA: Monitored anesthesia care. COMPLICATIONS: None. BLOOD LOSS: Minimal. DESCRIPTION OF PROCEDURE: After the risks and benefits were explained to the patient, informed consent was obtained. After anesthesia was administered, the colonoscope was inserted from rectum to the cecum and the mucosa carefully examined. Prep of the patient was excellent. After the procedure was done, the scope was withdrawn and the procedure terminated. FINDINGS: Upon inspection of the anus no masses, hemorrhoids, ulcers, or fissures that were seen. Throughout the entire examination there was mild sigmoid diverticulosis. There was also mild erythema with ulcerations seen from 30 to 35 cm from the anus suspicious for ischemic colitis. Status post biopsy. A 4 mm ascending colon polyp was also seen and removed by hot snare polypectomy, followed by a hemoclip placed at the post polypectomy site due to oozing and the patient on Plavix. Retroflexion was normal. IMPRESSIONS: 1. Mild erythema and ulcerations seen from 30 to 35 cm from the anus. Status post biopsy and suspicious for ischemic colitis. 2. Mild sigmoid diverticulosis. 3. A 4 mm ascending colon polyp, removed by hot snare polypectomy. Followed by a hemoclip placement at the post polypectomy site. RECOMMENDATIONS: Await pathology results. Encouraged hydration. If no overt signs of bleeding overnight and hemoglobin stable, then okay to restart Plavix in the morning and discharge home with followup in GI Clinic in 2-4 weeks as an outpatient. Mitzi Alvarez MD 05/08/17 [id number] <Electronically signed by Mitzi Alvarez MD> [id number] Brief History GASTROENTEROLOGY CONSULTATION Patient is a 56 year old male with a history of hypertension, CO, CAD and colitis who presented to the ED complaining of blood in stool that first started yesterday. 2 days ago he began experiencing some abdominal pain, diarrhea, diaphoresis and nausea. Patient reports 3 episodes of passing bright red blood today, and several episodes yesterday. This was preceded by cramping, intense abdominal pain, large volumes of diarrhea, and diaphoresis at about 2 am Thu. He has not eaten anything out of the ordinary, he is not feeling fever or chills. He has had some mild nausea. in June of 2015 patient underwent colonoscopy with biopsies, visual picture and pathology consistent with ischemic colitis. He has had laparotomy in 1983 for gastric perforation due to trauma and a splenectomy in 2004 Hospital Course Ischemic Colitis -h/h stable, no active bleeding - Normal CMP and CBC -appreciate doing colonoscopy yesterday -started PPI on adm Chronic, stable HTN, HLD, continue BB, home statin STEMI in 2014 s/p JENELLE in RCA on DAPT, hold both, may resume aspirin only after colonoscopy, follow up with Dr.Lo aragon:home today diet:Regular Full code Exam Vital Signs (Last) Date Time Temp Pulse Resp B/P Pulse Ox O2 Delivery O2 Flow Rate FiO2 05/09/17 08:45 36.9 52 16 121/69 97 Room Air Exam Alert and oriented 3, no apparent distress, he recognizes me from prior interactions over the last 20 years. He updates me on his other family members who I have interacted with also. Heart is regular rate and rhythm without murmur Lungs clear to auscultation bilaterally Extremities no ankle edema Abdomen soft, vessels positive, no organomegaly, nontender. Test 05/07/17 10:36 05/07/17 10:51 05/09/17 05:32 Prothrombin Time 10.0sec (8.1-12.5) Prothromb Time International Ratio 0.94ratio Troponin T < 0.010ug/L (0.0-0.011) Urine Color Straw (YELLOW) Urine Appearance Clear (CLEAR,HAZY) Urine pH 6.0 (5.0-8.0) Urine Specific [place] 1.005 (1.003-1.035) Urine Protein Negativemg/dL (NEG,TRACE) Urine Glucose (UA) Negativemg/dL (NEGATIVE) Urine Ketones Negativemg/dL (NEGATIVE) Urine Occult Blood Trace (NEGATIVE) Urine Nitrite Negative (NEGATIVE) Urine Bilirubin Negative (NEGATIVE) Urine Urobilinogen Normalmg/dL (NORMAL) Urine Leukocyte Esterase Negative (NEGATIVE) Urine RBC 0-2/hpf (0-2) Urine WBC 0-5/hpf (0-5) Urine Epithelial Cells None/hpf (NONE-MOD) Urine Crystals None seen (NONE SEEN) Urine Bacteria None/hpf (NONE-FEW) Urine Hyaline Casts None/lpf (NONE) Urine Granular Casts None seen (NONE SEEN) Urine Waxy Casts None seen (NONE SEEN) Urine Red Blood Cell Casts None seen (NONE SEEN) Urine White Blood Cell Casts None seen (NONE SEEN) Urine Mucus None seen (None Seen) Urine Trichomonas None seen (NONE SEEN) Urine Yeast None (NONE SEEN) Urinalysis Comment None Urine Culture Reflexed Not indicated White Blood Count 9.2th/mm3 (3.8-10.1) Red Blood Count 4.33mil/mm3 (4.40-5.80) Hemoglobin 13.3g/dL (13.8-17.2) Hematocrit 39.9% (41.0-50.0) Mean Corpuscular Volume 92.1fL (81-100) Mean Corpuscular Hemoglobin 30.7pg (27.0-35.0) Mean Corpuscular Hemoglobin Concent 33.3% (32.0-37.0) Red Cell Distribution Width 13.0% (12.3-15.4) Platelet Count 328bil/L (150-400) Neutrophils (%) (Auto) 55.2% (40-74) Lymphocytes (%) (Auto) 32.4% (14-46) Monocytes (%) (Auto) 10.0% (4-12) Eosinophils (%) (Auto) 1.8% (0-5) Basophils (%) (Auto) 0.4% (0-3) Sodium Level 138mEq/L (134-144) Potassium Level 4.6mEq/L (3.5-5.2) Chloride Level 101mEq/L (97-108) Carbon Dioxide Level 24mmol/L (18-29) Blood Urea Nitrogen 10mg/dL (6-24) Creatinine 0.81mg/dL (0.76-1.27) Estimat Glomerular Filtration Rate 104mL/min (>59) Glucose Level 91mg/dL (60-99) Calcium Level 9.2mg/dL (8.5-10.1) Phosphorus Level 3.2mg/dL (2.5-4.9) Magnesium Level 2.2mg/dL (1.6-2.6) Total Bilirubin 0.7mg/dL (0.0-1.2) Aspartate Amino Transf (AST/SGOT) 23U/L (0-50) Alanine Aminotransferase (ALT/SGPT) 25U/L (0-44) Alkaline Phosphatase 109U/L (25-150) Total Protein 6.9g/dL (6.4-8.4) Albumin 3.7g/dL (3.4-5.0) [place] Level < 0.1mEq/L (0.5-1.5) Discharge Medications Discharge Medications Aspirin (Aspirin) 81 Mg Tablet 81 MG PO DAILY (Reported) Atorvastatin (Lipitor) 40 Mg Tablet 40 MG PO HS (Reported) Citalopram (Citalopram) 10 Mg Tablet 15 MG PO DAILY (Reported) Clopidogrel Bisulfate (Plavix) 75 Mg Tablet 75 MG PO DAILY Prescribed by: SAMIR GARNER MD Lisinopril (Lisinopril) 10 Mg Tablet 10 MG PO HS (Reported) Metoprolol Tartrate (Metoprolol Tartrate) 25 Mg Tablet 12.5 MG PO BID (Reported ) As needed Hydrocodone-Acetaminophen 10-325 mg (Hydrocodone-Acetaminophen 10-325 mg) 1 Each Tablet 1 TABLET PO Q4-6H PRN PRN For Pain (Reported) Nitroglycerin SL (Nitrostat) 0.4 Mg Tablet 0.4 MG SL Q5MIN PRN PRN For Chest Pain Prescribed by: INNA PEREZ MD Followup Plan Discharge Diet: Heart Healthy Follow-up Provider: Irving Garza MD Follow-up with PCP in: 1 week Provider: Mitzi Alvarez MD Follow-up in: 2 weeks Sundar Mendoza MD May 09, 2017 09:54
--- NOTE | 2017-05-11 15:52 | PATH ---
SURGICAL PATHOLOGY Attending Physician:Prosper Alvarez MD CASE STATUS: Signed Out PATIENT NAME: PROSPER REYNOLDS SR PID: [id number] : 1960 DATE COLLECTED:05/08/2017 00:00 SPECIMEN: 1: Colon, Biopsy 2: Colon, Polyp CLINICAL HISTORY: 1). SIGMOID COLON BIOPSY 2). ASCENDING COLON POLYP FINAL DIAGNOSIS: 1. Sigmoid Colon, Biopsy: Hyperplastic polyp. 2. Ascending Colon, Polyp, Biopsy: Tubular adenoma; negative for high-grade dysplasia. ICD10: K63.5 GROSS DESCRIPTION: The specimen is received in two formalin filled containers labeled with the patient's name. 1). The specimen is sublabeled "sigmoid colon" and consists of a 0.3 x 0.3 x 0.2 CM portion of tissue which is entirely submitted in cassette 1A. 2). The specimen is sublabeled "ascending colon polyp" and consists of a 0.5 x 0.4 x 0.3 CM portion of tissue which is entirely submitted in cassette 2A. 05/09/2017 [facility] ICD-9 CODES: CPT CODES: 1: 43693 2: 77777 Electronically Signed Out Sendy Lo MD [facility] Pathology [facility] [address], [place] [address] Technical component performed at [facility], [facility] [address], [place], [address]
== END 2017-05-09 10:50 | disposition home or self-care (01) | DRG 395 ==
LOC: SED 09:22 → OSC 16:44 → OBSVTOIN 16:44
PROVIDERS: ADMIT Internal Medicine; ATTEND Internal Medicine
PROC: 0DBK8ZX Excision of Ascending Colon, Via Natural or Artificial Opening Endoscopic, Diagnostic (ICD-10-PCS; principal; 2017-05-08 16:00)
PROC: 0DBN8ZX Excision of Sigmoid Colon, Via Natural or Artificial Opening Endoscopic, Diagnostic (ICD-10-PCS; 2017-05-08 16:00)
DX: K55.9 Vascular disorder of intestine, unspecified (principal); I25.10 Atherosclerotic heart disease of native coronary artery without angina pectoris; E78.5 Hyperlipidemia, unspecified; D12.2 Benign neoplasm of ascending colon; K57.30 Diverticulosis of large intestine without perforation or abscess without bleeding; G89.29 Other chronic pain; E11.9 Type 2 diabetes mellitus without complications; F32.9 Major depressive disorder, single episode, unspecified; I25.2 Old myocardial infarction; Z79.82 Long term (current) use of aspirin; Z87.891 Personal history of nicotine dependence